=== PATIENT | female | born 1955 | race Caucasian/White ===

== ENCOUNTER 2016-05-31 16:45 | Emergency (ER) | payer OTHER ==
[~2016-05-31] VITALS: Ht 165.1 cm; Wt 90.7 kg
--- NOTE | ~2016-05-31 | EKG ---
[address] [place] [address] ELECTROCARDIOGRAM REPORT Name: TRACEE LAU Room #: DEP Jeff#: [id number] Admission: 05/31/16 Attend Phys: Discharge: 05/31/16 Date of : 57 Report #: [id number] THIS REPORT FOR: //name// [facility] ED Test Date: 2016-05-31 Test Time: 16:49:31 Pat Name: TRACEE LAU Department: Room: Gender: F Training Developer: : 1955 Requested By: Kelsey Deshpande Order Number: [id number] MD: Ebenezer Todd Measurements Intervals Kell Rate: 100 P: 18 WA: 153 QRS: -35 QRSD: 81 T: 18 QT: 337 QTc: 435 Interpretive Statements Sinus tachycardia Ventricular premature complexes Poor R wave progression Inferior infarct, old Compared to ECG 12/11/2015 02:17:36 Ventricular premature complex(es) now present Electronically Signed On 06-01-2016 8:28:08 [employer]ECUTIVE by Ebenezer Todd [email or web address] <ELECTRONICALLY SIGNED> By: Ebenezer Todd MD, [facility] 06/01/16 0828 48 Ebenezer Todd MD, [facility] /EPI
[~2016-05-31 16:45] MED LIST: ADULT LOW DOSE81 MG PO; AMOXICILLIN 50500 M1 PO; CIPROFLOXACIN500 M1 PO; DIMETAPP120 MG PO; FLEXERIL PO; NASOCORT; NORCO 5-325 TA1 EACH PO; NORVASC5 MG PO; PEPCID PO; PROTONIX40 MG PO; SINGULAIR 10 MG10 M1 PO; VICODIN 5-5001 EACH PO; VITAMIN D1000 UNI1 PO; ZOFRAN ODT4 MG PO; ZYRTEC 10 MG TA10 MG PO; [UNRECOGNIZED DRUG - OTHER]
[2016-05-31 17:31] LABS: ABSOLUTE NEUTROPHILS 4.6 thou/uL (1.4-8.2); EOSINOPHILS 0.8 % (0.0-3.0); HEMATOCRIT 41.4 % (37.0-47.0); HEMOGLOBIN 13.6 gm/dL (12.0-15.0); LYMPHOCYTES 50.2 % (24.0-44.0); MCH 26.2 pg (26.0-34.0); MCHC 32.9 % (28.0-37.0); MCV 79.6 fL (80.0-100.0); MONOCYTES 9.5 % (1.0-8.0); PLATELET COUNT 470 thou/uL (150-400); POLYS 38.5 % (36.0-66.0); RDW 13.9 % (10.5-14.5); WBC 11.9 thou/uL (4.0-11.0)
[2016-05-31 17:39] LABS: MANUAL DIFF NO
[2016-05-31 17:47] LABS: ANION GAP 12 mmol/L (7-16); BUN 16 mg/dL (7-18); CALCIUM 9.4 mg/dL (8.5-10.1); CHLORIDE 106 mmol/L (98-107); CO2 24 mmol/L (21-32); CREATININE 0.8 mg/dL (0.6-1.3); GLUCOSE 103 mg/dL (70-99); POTASSIUM 3.8 mmol/L (3.5-5.1); SODIUM 142 mmol/L (136-145)
[2016-05-31 17:54] LABS: ALKALINE PHOSPHATASE 137 U/L (46-116); SGOT 16 U/L (15-37); SGPT 25 U/L (30-65); TOTAL BILIRUBIN 0.3 mg/dL (<0.1-1.0); TOTAL PROTEIN 8.1 g/dL (6.4-8.2); TROPONIN-I < 0.04 ng/mL (<0.04-0.07)
[2016-05-31 18:01] LABS: URINE BILIRUBIN NEGATIVE (Negative); URINE BLOOD TRACE (Negative); URINE COLOR YELLOW; URINE GLUCOSE-RANDOM* NEGATIVE (Negative); URINE KETONES NEGATIVE (Negative); URINE NITRITE NEGATIVE (Negative); URINE PROTEIN (DIPSTICK) NEGATIVE (Negative); URINE UROBILINOGEN 0.2 E.U./dl (0.2-1.0)
[2016-05-31 18:55] VITALS: BP 149/102
== END 2016-05-31 18:58 | disposition home or self-care (01) ==
LOC: ER 16:45
PROVIDERS: Nurse Practitioner Family
DX: R00.2 Palpitations (principal); I10 Essential (primary) hypertension; Z88.1 Allergy status to other antibiotic agents; Z88.2 Allergy status to sulfonamides; Z88.6 Allergy status to analgesic agent; Z91.041 Radiographic dye allergy status